=== PATIENT | female | born 2000 | race Caucasian/White ===

== ENCOUNTER 2021-01-04 02:49 | Emergency (ER) | payer OTHER ==
[2021-01-04] MEDS ORDERED: SODIUM CHLORIDE 0.9% 1,000 ML IV STA (03:50)
[2021-01-04] MEDS ORDERED: diphenhydrAMINE INJ 50 MG/ML VIAL IVP STA (03:50)
[2021-01-04] MEDS ORDERED: PROCHLORPERAZINE 10 MG/2 ML VIAL IVP STA (03:50)
[2021-01-04] MEDS ORDERED: KETOROLAC 30 MG/ML VIAL IVP STA (03:50)
[2021-01-04] MEDS ORDERED: DEXAMETHASONE 10 MG/ML VIAL IVP STA (03:50)
--- NOTE | 2021-01-04 03:55 | ED Physician Documentation ---
PD HPI HEADACHE - Stated complaint Stated Complaint: MIGRANE, BODY ACHE, NAUSEA - Chief complaint Chief Complaint: Neuro - History obtained from History obtained from: Patient - History of Present Illness Timing - onset: How many days ago (3) Timing - onset during: Rest Timing - duration: Days (3) Timing - details: Gradual onset, Still present Location: Front Quality: Throbbing, Aching Associated symptoms: Nausea, Vomiting. No: Fever, Stiff neck Improved by: Rest, Dark room Worsened by: Light, Noise, Moving Contributing factors: No: Anticoagulated Similar symptoms before: Diagnosis (migraine) Recently seen: Clinic (has started paroxitine 2 days ago.) - Additional information Additional information: 20-year-old female comes into the emergency department complaining of a headache that she has had daily's for the past year. She has been evaluated with MRI and she has taken sumatritan and rizatriptan without improvement. She complains of a headache that starts in the center of her head and moves backwards. She has some nausea with this and occasional vomiting. She has had significant frustration with continued headache and states that she is spending most of her time in bed because of this headache and pelvic pain. She believes she has endometriosis and relates heavy menstrual flow and incapacitating menstrual cycles. She has not been in to see [facility] about these symptoms. She has referral in place. She has recently started paroxetine 2 days ago and she feels that her nausea is much worse after starting the paroxetine. She wonders if she should stop it. . Review of Systems Constitutional: denies: Fever Eyes: reports: Photophobia. denies: Decreased vision Ears: denies: Ear pain Nose: denies: Congestion Throat: denies: Sore throat Cardiac: denies: Chest pain / pressure, Palpitations Respiratory: denies: Dyspnea, Cough GI: reports: Abdominal Pain, Nausea, Vomiting : denies: Dysuria, Frequency Skin: denies: Rash Musculoskeletal: denies: Neck pain, Back pain, Extremity pain Neurologic: denies: Generalized weakness, Focal weakness, Numbness Psychiatric: reports: Depressed PD PAST MEDICAL HISTORY - Past Medical History Past Medical History: Yes Neuro: Migraines Psych: Depression, Anxiety Other Past Medical History: Migraine - Past Surgical History Past Surgical History: No HEENT: Other - Present Medications Home Medications: Ambulatory Orders Medication Instructions Recorded Confirmed PARoxetine HCl [Paxil] 20 mg DAILY 01/04/21 01/04/21 Rizatriptan Benzoate [Rizatriptan] 10 mg PRN PRN 01/04/21 01/04/21 - Allergies Allergies/Adverse Reactions: Allergies Allergy/AdvReac Type Severity Reaction Status Date / Time amoxicillin Allergy Unknown Verified 01/04/21 03:00 clindamycin Allergy Hives Verified 01/04/21 03:00 Penicillins Allergy Unknown Verified 01/04/21 03:00 - Social History Does the pt smoke?: No Smoking Status: Never smoker Does the pt drink ETOH?: Yes Does the pt have substance abuse?: No - Immunizations Immunizations are current?: Yes PD ED PE NORMAL - Vitals Vital signs reviewed: Yes (Tachycardic and hypertensive mild) - General General: Alert and oriented X 3, Well developed/nourished, Other (Teary-eyed female expressing frustration) - HEENT HEENT: Atraumatic, PERRL, EOMI - Neck Neck: Supple, no meningeal sign, No bony TTP - Cardiac Cardiac: RRR, No murmur - Respiratory Respiratory: No respiratory distress, Clear bilaterally - Abdomen Abdomen: Normal bowel sounds, Soft, Non distended, No organomegaly, Other (Palpation of the right upper quadrant of the abdomen causes pain in the left lower quadrant) - Back Back: No CVA TTP, No spinal TTP - Derm Derm: Normal color, Warm and dry, No rash - Extremities Extremities: No deformity, No edema - Neuro Neuro: Alert and oriented X 3, No motor deficit, No sensory deficit, Normal speech Eye Opening: Spontaneous Motor: Obeys Commands Verbal: Oriented GCS Score: 15 - Psych Psych: Other (Mood is frustrated and the affect is labile) Results - Vitals Vitals: Vital Signs - 24 hr 01/04/21 01/04/21 01/04/21 03:00 03:06 04:43 Temperature 36.8 C 36.8 C Heart Rate 105 H 105 H 75 Respiratory 20 20 15 Rate Blood Pressure 126/81 H 126/81 H 114/78 O2 Saturation 95 95 100 01/04/21 05:18 Temperature 36.8 C Heart Rate 72 Respiratory 16 Rate Blood Pressure 115/72 O2 Saturation 100 Oxygen O2 Source Room air - Labs Labs: Laboratory Tests 01/04/21 01/04/21 01/04/21 03:56 04:00 04:00 WBC 4.9 RBC 4.46 Hgb 13.4 Hct 39.7 MCV 89.0 MCH 30.0 MCHC 33.8 RDW 12.5 Plt Count 241 MPV 8.8 Neut # (Auto) 3.2 Lymph # (Auto) 0.6 L Summers # (Auto) 1.0 Eos # (Auto) 0.0 Baso # (Auto) 0.0 Absolute Nucleated RBC 0.00 Nucleated RBC % 0.0 Sodium 136 Potassium 3.9 Chloride 103 Carbon Dioxide 23 Anion Gap 10.0 BUN 8 Creatinine 0.6 Estimated GFR (MDRD) 126 Glucose 102 H Calcium 9.3 Total Bilirubin 0.4 AST 16 ALT 12 Alkaline Phosphatase 39 L Total Protein 7.8 Albumin 4.6 Globulin 3.2 Albumin/Globulin Ratio 1.4 Lipase 34 Urine Color YELLOW Urine Clarity CLEAR Urine pH 5.5 Ur Specific [place] >=1.030 H Urine Protein NEGATIVE Urine Glucose (UA) NEGATIVE Urine Ketones >=80 H Urine Occult Blood NEGATIVE Urine Nitrite NEGATIVE Urine Bilirubin NEGATIVE Urine Urobilinogen 0.2 (NORMAL) Ur Leukocyte Esterase NEGATIVE Ur Microscopic Review NOT INDICATED Urine Culture Comments NOT INDICATED Urine HCG, Qual NEGATIVE Procedures - IVC sono (time) 0340 Bedside IVC sono: IVC measures (cm) (1.57), Euvolemia PD MEDICAL DECISION MAKING - ED course Complexity details: reviewed results, re-evaluated patient, considered differential, d/w patient ED course: 20-year-old female with daily migraine has worsening of her symptoms over the past 3 days she comes to the emergency department in the middle of the night frustrated with her care and with the chief complaint of uncontrolled migraine. Here in the emergency department we have administered a migraine cocktail consisting of dexamethasone, Compazine, Toradol, Benadryl and saline. The patient had good relief of her headache and appeared to feel quite a bit b apoorva the crying and frustration seemed improved. Departure - Departure Disposition: 01 Home, Self Care Clinical Impression: Migraine Qualifiers: Migraine type: without aura Status migrainosus presence: with status migrainosus Intractability: not intractable Qualified Code(s): G43.001 - Migraine without aura, not intractable, with status migrainosus Condition: Stable Instructions: ED Headache Migraine Follow-Up: [facility] [Provider Group] [facility] [Provider Group] Discharge Date/Time: 01/04/21 05:18
[2021-01-04 04:05] LABS: BASOPHILS % (AUTO) 0.4 %; EOSINOPHILS % (AUTO) 0.4 %; HCT - HEMATOCRIT 39.7 % (37.0-47.0); HGB - HEMOGLOBIN 13.4 g/dL (12.0-16.0); LYMPHOCYTES # (AUTO) 0.6 10^3/uL (1.5-3.5); LYMPHOCYTES % (AUTO) 12.9 %; MEAN CORPUSCULAR HGB CONC 33.8 g/dL (32.0-36.0); MEAN PLATELET VOLUME 8.8 fL (7.9-10.8); NEUTROPHILS # (AUTO) 3.2 10^3/uL (1.5-6.6); NEUTROPHILS % (AUTO) 66.1 %; PLT - PLATELET COUNT 241 10^3/uL (130-450); RED BLOOD COUNT 4.46 10^6/uL (4.20-5.40); RED CELL DISTRIBUTION WIDTH 12.5 % (12.0-15.0); WHITE BLOOD COUNT 4.9 x10^3/uL (4.8-10.8)
[2021-01-04 04:18] LABS: ALBUMIN 4.6 g/dL (3.2-5.5); ALBUMIN/GLOBULIN RATIO 1.4 (1.0-2.2); BILIRUBIN,TOTAL 0.4 mg/dL (0.2-1.0); CALCIUM 9.3 mg/dL (8.5-10.3); CREATININE 0.6 mg/dL (0.4-1.0); POTASSIUM 3.9 mmol/L (3.5-5.0); TOTAL PROTEIN 7.8 g/dL (6.7-8.2)
[2021-01-04 04:21] LABS: BILIRUBIN,URINE NEGATIVE (NEGATIVE); GLUCOSE, URINE (UA) NEGATIVE (NEGATIVE); KETONES,URINE (UA) >=80 mg/dL (NEGATIVE); LEUKOCYTE ESTERASE, URINE NEGATIVE (NEGATIVE); NITRITE,URINE NEGATIVE (NEGATIVE); OCCULT BLOOD,URINE NEGATIVE (NEGATIVE); PH,URINE 5.5 PH (5.0-7.5); PROTEIN,URINE NEGATIVE (NEGATIVE); UROBILINOGEN,URINE 0.2 (NORMAL) E.U./dL (NORMAL)
[2021-01-04 04:23] LABS: CLARITY,URINE CLEAR (CLEAR); HCG UR QUAL NEGATIVE
[2021-01-04 05:20] VITALS: BP 115/72
== END 2021-01-04 05:18 | disposition home or self-care (01) ==
LOC: ED 02:49
DX: G43.001 Migraine without aura, not intractable, with status migrainosus (principal)
CPT/HCPCS: 36415; 80053; 81003; 81025; 83690; 85025; 96361; 96374; 96375; 99283; 99284; J1200; 81001; 87086

== ENCOUNTER 2021-11-29 11:21 | Emergency (ER) | payer OTHER ==
[2021-11-29 11:44] LABS: BILIRUBIN,URINE NEGATIVE (NEGATIVE); GLUCOSE, URINE (UA) NEGATIVE (NEGATIVE); KETONES,URINE (UA) NEGATIVE (NEGATIVE); LEUKOCYTE ESTERASE, URINE TRACE (NEGATIVE); NITRITE,URINE NEGATIVE (NEGATIVE); OCCULT BLOOD,URINE MODERATE (NEGATIVE); PROTEIN,URINE NEGATIVE (NEGATIVE); UROBILINOGEN,URINE 0.2 (NORMAL) E.U./dL (NORMAL)
[2021-11-29 11:46] LABS: CLARITY,URINE HAZY (CLEAR); HCG UR QUAL POSITIVE
[2021-11-29 11:54] LABS: BACTERIA,URINE Moderate /HPF (None Seen); SQUAMOUS EPITHELIAL CELL,UR MOD Squamous (<= Few)
[2021-11-29 12:31] LABS: BASOPHILS # (AUTO) 0.1 10^3/uL (0.0-0.1); BASOPHILS % (AUTO) 0.7 %; EOSINOPHILS % (AUTO) 0.5 %; HCT - HEMATOCRIT 38.7 % (37.0-47.0); HGB - HEMOGLOBIN 13.3 g/dL (12.0-16.0); LYMPHOCYTES # (AUTO) 1.5 10^3/uL (1.5-3.5); LYMPHOCYTES % (AUTO) 17.7 %; MEAN CORPUSCULAR HEMOGLOBIN 30.3 pg (27.0-31.0); MEAN CORPUSCULAR HGB CONC 34.4 g/dL (32.0-36.0); MEAN CORPUSCULAR VOLUME 88.2 fL (81.0-99.0); MEAN PLATELET VOLUME 9.1 fL (7.9-10.8); MONOCYTES # (AUTO) 0.8 10^3/uL (0.0-1.0); MONOCYTES % (AUTO) 9.4 %; NEUTROPHILS # (AUTO) 6.1 10^3/uL (1.5-6.6); NEUTROPHILS % (AUTO) 71.5 %; PLT - PLATELET COUNT 306 10^3/uL (130-450); RED BLOOD COUNT 4.39 10^6/uL (4.20-5.40); RED CELL DISTRIBUTION WIDTH 12.3 % (12.0-15.0); WHITE BLOOD COUNT 8.5 x10^3/uL (4.8-10.8)
[2021-11-29 12:46] LABS: CALCIUM 9.8 mg/dL (8.5-10.3); CREATININE 0.4 mg/dL (0.4-1.0)
--- NOTE | 2021-11-29 14:23 | ED Physician Documentation ---
History of Present Illness - Stated complaint Stated Complaint: BLEEDING, - Chief complaint Chief Complaint: General - History obtained from History obtained from: Patient - Additonal information Additional information: 21-year-old G now 3 with a history of 2 miscarriages presents with heavy cramping that has mostly subsided with spotting starting late morning today. Review of Systems Constitutional: denies: Fever, Chills Cardiac: reports: Reviewed and negative Respiratory: reports: Reviewed and negative PD PAST MEDICAL HISTORY - Past Medical History Past Medical History: Yes Neuro: Migraines [employer]IT[employer] ASSOCIATE: Miscarriage(s) Psych: Depression, Anxiety - Past Surgical History Past Surgical History: No HEENT: Other - Present Medications Home Medications: Ambulatory Orders Medication Instructions Recorded Confirmed PARoxetine HCl [Paxil] 20 mg DAILY 01/04/21 01/04/21 Rizatriptan Benzoate [Rizatriptan] 10 mg PRN PRN 01/04/21 01/04/21 - Allergies Allergies/Adverse Reactions: Allergies Allergy/AdvReac Type Severity Reaction Status Date / Time amoxicillin Allergy Unknown Verified 01/04/21 03:00 clindamycin Allergy Hives Verified 01/04/21 03:00 Penicillins Allergy Unknown Verified 01/04/21 03:00 - Social History Does the pt smoke?: No Smoking Status: Never smoker Does the pt drink ETOH?: Yes Does the pt have substance abuse?: No - Immunizations Immunizations are current?: Yes PD ED PE NORMAL - Vitals Vital signs reviewed: Yes - General General: Alert and oriented X 3, No acute distress - Abdomen Abdomen: Soft, Non tender - Female Female : Deferred (Ultrasound already done) - Neuro Neuro: Alert and oriented X 3, Normal speech Results - Vitals Vitals: Vital Signs - 24 hr 11/29/21 11/29/21 11:26 14:32 Temperature 36.9 C Heart Rate 86 70 Respiratory 20 Rate Blood Pressure 120/77 122/53 L O2 Saturation 100 99 Oxygen O2 Source Room air - Labs Labs: Laboratory Tests 11/29/21 11/29/21 11/29/21 11:35 12:23 12:23 WBC 8.5 RBC 4.39 Hgb 13.3 Hct 38.7 MCV 88.2 MCH 30.3 MCHC 34.4 RDW 12.3 Plt Count 306 MPV 9.1 Neut # (Auto) 6.1 Lymph # (Auto) 1.5 Hooker # (Auto) 0.8 Eos # (Auto) 0.0 Baso # (Auto) 0.1 Absolute Nucleated RBC 0.00 Nucleated RBC % 0.0 Sodium Potassium Chloride Carbon Dioxide Anion Gap BUN Creatinine Estimated GFR (MDRD) Glucose Calcium HCG, Quant Urine Color YELLOW Urine Clarity HAZY Urine pH 6.0 Ur Specific [place] 1.025 Urine Protein NEGATIVE Urine Glucose (UA) NEGATIVE Urine Ketones NEGATIVE Urine Occult Blood MODERATE H Urine Nitrite NEGATIVE Urine Bilirubin NEGATIVE Urine Urobilinogen 0.2 (NORMAL) Ur Leukocyte Esterase TRACE H Urine RBC 6-10 H Urine WBC 4-5 Ur Squamous Epith Cells MOD Squamous H Urine Bacteria Moderate H Ur Microscopic Review INDICATED Urine Culture Comments NOT INDICATED Urine HCG, Qual POSITIVE Blood Type A POSITIVE 11/29/21 11/29/21 12:23 12:23 WBC RBC Hgb Hct MCV MCH MCHC RDW Plt Count MPV Neut # (Auto) Lymph # (Auto) Hooker # (Auto) Eos # (Auto) Baso # (Auto) Absolute Nucleated RBC Nucleated RBC % Sodium 136 Potassium 4.0 Chloride 102 Carbon Dioxide 26 Anion Gap 8.0 BUN 12 Creatinine 0.4 Estimated GFR (MDRD) 200 Glucose 79 Calcium 9.8 HCG, Quant 859812.00 Urine Color Urine Clarity Urine pH Ur Specific [place] Urine Protein Urine Glucose (UA) Urine Ketones Urine Occult Blood Urine Nitrite Urine Bilirubin Urine Urobilinogen Ur Leukocyte Esterase Urine RBC Urine WBC Ur Squamous Epith Cells Urine Bacteria Ur Microscopic Review Urine Culture Comments Urine HCG, Qual Blood Type PD MEDICAL DECISION MAKING - ED course ED course: 21-year-old presents fearful of her current with cramping and spotting. Reassuring work-up here with beta-hCG around 130,000 and single live intrauterine on ultrasound corresponding with dates. She does have a subchorionic hemorrhage. Counseled on follow-up and return precautions. Departure - Departure Disposition: 01 Home, Self Care Clinical Impression: Threatened affecting intrauterine Condition: Good Record reviewed to determine appropriate education?: Yes Instructions: ED Preg Established Normal Sxs Comments: Your blood type is a positive. The ultrasound looking reassuring today with a live intrauterine noted at the age of about 7 weeks. Follow-up with your OB, next available appointment. Return for new or worsening symptoms. Discharge Date/Time: 11/29/21 14:32
[2021-11-29 14:33] VITALS: BP 122/53
--- NOTE | 2021-11-29 15:02 | Ultrasound Report ---
PROCEDURE: OB First Trimester w/TV INDICATIONS: preg vb TECHNIQUE: Real-time scanning was performed of the fetus and maternal pelvic organs, with image documentation. Endovaginal scanning was also performed to better visualize the fetus and maternal ovaries. COMPARISON: None FINDINGS: Gestational sac in the uterine fundus containing a conceptus with a crown-rump length of 6-7 mm, lamar esponding to gestational age of six weeks four days. Yolk sac noted. heart rate measured at 132 bpm. Small subchorionic hemorrhage measuring 1.6 x 1.5 x 3.5 cm. Right corpus luteum cyst noted. Ova dhara otherwise normal. IMPRESSION: Single living intrauterine with estimated gestational age 6 weeks four days. Moderate-sized subchorionic hemorrhage. Reviewed by: Derek Hollingsworth MD on 11/29/2021 3:01 PM PDT Approved by: Derek Hollingsworth MD on 11/29/2021 3:01 PM PDT Station ID: [id number]
== END 2021-11-29 14:32 | disposition home or self-care (01) ==
LOC: ED 11:21
DX: O20.0 Threatened abortion (principal); Z3A.01 Less than 8 weeks gestation of pregnancy
CPT/HCPCS: 36415; 80048; 81001; 81003; 81025; 84702; 85025; 86900; 86901; 87086; 99282; 99284

== ENCOUNTER 2022-01-03 20:27 | Outpatient (CLI) | payer OTHER ==
--- NOTE | 2022-01-04 09:59 | Ultrasound Report ---
PROCEDURE: OB First Trimester INDICATIONS: SUPERV OF NL PREG OUTSIDE/PRIOR DATING DATA: Last menstrual period (LMP): Unknown. LMP-based estimated date of delivery (SHANTA): Unknown. First dating scan (date and location): 11/29/2021. Estimated date of delivery (SHANTA) from first dating scan: 07/17/2022. The below data below was generated using the ultrasound SHANTA of 07/17/2022. TECHNIQUE: Real-time scanning was performed of the fetus and maternal pelvic organs, with image documentation. COMPARISON: OB ultrasound 11/29/2021 FINDINGS: Embryo: 5.5 cm, 12 weeks 1 day Heart rate: 167 bpm. Small subchorionic hemorrhage measuring 1.6 x 1.1 x 0.7 cm, decreased. Measurement variability in dating: +/- 4 weeks by LMP, +/- 7 days by mean sac diameter (use before 6 weeks gestation if crown-rump length not able to be measured), +/- 5 days by crown-rump length (6-12 weeks gestation). Maternal organs: Ovaries are within normal limits. Right corpus luteum measuring 2.4 cm. IMPRESSION: 1. Cline living intrauterine at 12 weeks 1 day based on today's crown-rump length. Feta l heart rate 167 bpm. 2. Small perigestational hemorrhage is decreased. Reviewed by: Fernando Stewart MD on 01/04/2022 9:57 AM PDT Approved by: Fernando Stewart MD on 01/04/2022 9:57 AM PDT Station ID: [id number]
== END 2022-01-03 20:28 | disposition home or self-care (01) ==
LOC: DI 20:27
PROVIDERS: ATTEND Midwife
DX: O20.8 Other hemorrhage in early pregnancy (principal); Z3A.12 12 weeks gestation of pregnancy

== ENCOUNTER 2022-03-11 13:21 | Outpatient (CLI) | payer OTHER ==
--- NOTE | 2022-03-11 17:00 | Ultrasound Report ---
PROCEDURE: OB Detailed Eval INDICATIONS: SUPERVISION OF OUTSIDE/PRIOR DATING DATA: Last menstrual period (LMP): Unknown. LMP-based estimated date of delivery (SHANTA): Not applicable. First dating scan (date and location): 11/29/2021. Estimated date of delivery (SHANTA) from first dating scan: 07/17/2022. The below data below was generated using the first trimester ultrasound SHANTA of 07/17/2022 TECHNIQUE: Real-time scanning was performed of the fetus, with image documentation and biometric measurements. Endovaginal scanning: Not performed COMPARISON: 01/03/2022 FINDINGS: General: A single living intrauterine gestation is present. Presentation: Variable Placenta: Placental position is posterior, without previa. Amniotic fluid index: 13.7 cm, largest pocket is 4.5 cm, normal for gestational age. heart rate: 155 beats per minute. Maternal cervical canal: Closed and 3.6 cm long; normal length is 2.5 cm or more. biometrics: Biparietal diameter: 5.0 cm, 21 weeks, 1 day Head circumference: 18.7 cm, 21 weeks, 0 days Abdominal circumference: 16.5 cm, 21 weeks, 4 days Femur length: 3.5 cm, 21 weeks, 1 day Estimated gestational age from initial scan: 21 weeks, 5 days. Composite gestational age from present scan: 21 weeks, 2 days Estimated weight and percentile: 418 g, 27th percentile Measurement variability in biometric dating: +/- 10 days from 12-20 weeks gestation, +/- 2 weeks from 20-30 weeks gestation, +/- 3 weeks at 30 weeks gestation or later. Anatomic survey: Neuro: Ventricles are normal at less than 10 mm. Cisterna magna is normal at 3-11 mm. Cerebellum i s normal in size and morphology. Nuchal skin fold: Normal at less than 6 mm between 14 and 20 weeks gestational age. Face: Nose and lips, facial profile are normal. Spine: No evidence for spina bifida. Heart: 4-chambered heart is present, with normal ventricular outflow tracts. Diaphragm: Diaphragm is intact. Stomach: Left-sided stomach is present. Kidneys: No hydronephrosis. Normal is less than 5 mm in 2nd trimester, less than 7 mm in 3rd trimester. Cord: 3 vessel cord has orthotopic insertion. Bladder: Normal in size. Extremities: All 4 extremities are visualized. IMPRESSION: 1. Single living intrauterine with composite gestational age in good agreement with the ini tiamicky assigned gestational age. 2. Estimated weight at the 27th percentile. 3. Normal anatomy. 4. Normal amniotic fluid volume and closed cervix. Reviewed by: Lizz León MD on 03/11/2022 4:58 PM PDT Approved by: Lizz León MD on 03/11/2022 4:58 PM PDT Station ID: [id number]
== END 2022-03-11 13:22 | disposition home or self-care (01) ==
LOC: DI 13:21
PROVIDERS: ATTEND Midwife
DX: Z34.02 Encounter for supervision of normal first pregnancy, second trimester (principal)

== ENCOUNTER 2022-04-01 17:34 | Outpatient (CLI) | payer OTHER ==
--- NOTE | 2022-04-01 19:28 | HISTORY & PHYSICAL EXAMINATION ---
Admit History - Visit Reason Visit Reason: Other (Patient is a 21-year-old female 3 para 0-0-2-0 who presented to labor and delivery on April 01, 2022 reporting of falling down her stairs and landing on her hip and right arm at approximately 4:30 PM. She denies of any uterine contractions, vaginal discharge or bleeding.) - Care: positive: Other Complications This : positive: None, Other (Covid infection in early 2nd trimester.) Smoking Status: Never smoker - Mother's Labs Mother's Blood Type: positive: A Mother's RH: positive: Positive Rubella Status: positive: Immune - Other Maternal History Other Maternal History: Patient is a 21-year-old female 3 para 0-0-2-0 who presented to labor and delivery on April 01, 2022 reporting of falling down her stairs and landing on her hip and right arm at approximately 4:30 PM. She denies of any uterine contractions, vaginal discharge or bleeding. She reports of continued active movements. Her care is in [facility]. She recently had a anatomy ultrasound that demonstrated normal findings. Cell free DNA obtained earlier this shows a female fetus with normal chromosomes. Her care is otherwise noted for history of depression for which she had taken Paxil during the first trimester. This was later changed over to Zoloft which she has not yet started. During my discussion with the patient active movements were noted. Her uterus is otherwise soft and nontender. No visible contusions are noted on her abdomen. She appears comfortable without distress. heart tones demonstrates moderate varia bility and accelerations. Occasional variable decelerations are noted. However very active movements is audible during her observation. Meds/Allgy - Allergies Allergies/Adverse Reactions: Allergies Allergy/AdvReac Type Severity Reaction Status Date / Time amoxicillin Allergy Unknown Verified 01/04/21 03:00 clindamycin Allergy Hives Verified 01/04/21 03:00 Penicillins Allergy Unknown Verified 01/04/21 03:00 Physical - Abdominal Exam Vital Signs: Temp Pulse Resp BP Pulse Ox O2 Flow Rate 97.9 F 72 18 110/64 100 04/01/22 18:34 04/01/22 18:10 04/01/22 18:10 04/01/22 18:10 04/01/22 18:10 Contraction Intensity: positive: Other (No contractions reported by patient or on toco monitor.) Uterine Resting Tone: positive: Soft - Monitoring Strip Review: positive: Category I - Vaginal Exam Membranes: positive: Membranes intact Plan for Labor - Plan For Labor Plan for Labor: Patient will be monitored over the next hour. If stable without evidence of contractions or distress, will discharge patient to home. We reviewed labs, and kick count instructions.
[2022-04-01 20:17] VITALS: BP 109/65
== END 2022-04-01 20:06 | disposition home or self-care (01) ==
LOC: WFO 17:34 → FBP 17:38 → WFO 20:06
PROVIDERS: ATTEND Obstetrics & Gynecology
DX: O9A.219 Injury, poisoning and certain other consequences of external causes complicating pregnancy, unspecified trimester (principal); S79.919A Unspecified injury of unspecified hip, initial encounter; S49.91XA Unspecified injury of right shoulder and upper arm, initial encounter; Z3A.00 Weeks of gestation of pregnancy not specified; W10.9XXA Fall (on) (from) unspecified stairs and steps, initial encounter; Y92.009 Unspecified place in unspecified non-institutional (private) residence as the place of occurrence of the external cause; O99.340 Other mental disorders complicating pregnancy, unspecified trimester; F32.A Depression, unspecified
CPT/HCPCS: 59025; 99214

== ENCOUNTER 2023-07-04 13:30 | Outpatient (CLI) | payer OTHER ==
[2023-07-04 13:05] LABS: BILIRUBIN,URINE NEGATIVE (NEGATIVE); GLUCOSE, URINE (UA) NEGATIVE (NEGATIVE); KETONES,URINE (UA) NEGATIVE (NEGATIVE); LEUKOCYTE ESTERASE, URINE NEGATIVE (NEGATIVE); NITRITE,URINE NEGATIVE (NEGATIVE); OCCULT BLOOD,URINE NEGATIVE (NEGATIVE); PH,URINE 6.5 PH (5.0-7.5); PROTEIN,URINE NEGATIVE (NEGATIVE); UROBILINOGEN,URINE 0.2 (NORMAL) E.U./dL (NORMAL)
[2023-07-04 13:21] LABS: BACTERIA,URINE Few /HPF (None Seen); CLARITY,URINE CLEAR (CLEAR); RBC,URINE 0-5 /HPF (0-5); SQUAMOUS EPITHELIAL CELL,UR FEW Squamous (<= Few); WBC,URINE 0-3 /HPF (0-5)
[2023-07-04 17:48] LABS: BASOPHILS % (AUTO) 0.4 %; EOSINOPHILS % (AUTO) 0.3 %; HCT - HEMATOCRIT 39.9 % (37.0-47.0); HGB - HEMOGLOBIN 13.5 g/dL (12.0-16.0); LYMPHOCYTES # (AUTO) 2.1 10^3/uL (1.5-3.5); MEAN CORPUSCULAR HEMOGLOBIN 29.5 pg (27.0-31.0); MEAN CORPUSCULAR HGB CONC 33.8 g/dL (32.0-36.0); MEAN CORPUSCULAR VOLUME 87.1 fL (81.0-99.0); MEAN PLATELET VOLUME 9.5 fL (7.9-10.8); MONOCYTES # (AUTO) 0.5 10^3/uL (0.0-1.0); MONOCYTES % (AUTO) 5.1 %; NEUTROPHILS # (AUTO) 7.9 10^3/uL (1.5-6.6); NEUTROPHILS % (AUTO) 73.9 %; PLT - PLATELET COUNT 355 10^3/uL (130-450); RED BLOOD COUNT 4.58 10^6/uL (4.20-5.40); RED CELL DISTRIBUTION WIDTH 12.9 % (12.0-15.0); WHITE BLOOD COUNT 10.6 x10^3/uL (4.8-10.8)
[2023-07-05 04:10] LABS: HBsAG SCREEN Negative (Negative); RPR Non Reactive (Non Reactive)
[2023-07-05 12:09] LABS: VARICELLA-ZOSTER AB IGG 1392 index (Immune >165)
[2023-07-06 08:08] LABS: HCV AB Non Reactive (Non Reactive)
[2023-07-06 10:07] LABS: HIV SCREEN 4TH GENERATION Non Reactive (Non Reactive)
== END 2023-07-04 13:31 | disposition home or self-care (01) ==
LOC: LAB.WC 13:30
PROVIDERS: ATTEND Nurse Practitioner
DX: Z34.90 Encounter for supervision of normal pregnancy, unspecified, unspecified trimester (principal)
CPT/HCPCS: 36415; 81001; 85025; 86592; 86762; 86787; 86803; 86850; 86900; 86901; 87086; 87340; 87389

== ENCOUNTER 2023-07-11 12:43 | Outpatient (CLI) | payer OTHER ==
--- NOTE | 2023-07-11 16:01 | Ultrasound Report ---
PROCEDURE: OB 1st Trimester w/TV INDICATIONS: POSITIVE TEST OUTSIDE/PRIOR DATING DATA: Last menstrual period (LMP): 05/18/2023. LMP-based estimated date of delivery (SHANTA): 02/22/2024. First dating scan (date and location): 07/11/2023. Estimated date of delivery (SHANTA) from first dating scan: 02/25/2024. TECHNIQUE: Real-time scanning was performed of the fetus and maternal pelvic organs, with image documentation. Endovaginal scanning was also performed to better visualize the fetus and maternal ovaries. COMPARISON: None. FINDINGS: Intrauterine gestational sac present. Embryo: Blandon-rump length is 1.2 cm, compatible with an estimated gestational age of 7 weeks 2 days. Yolk sac is noted. Heart rate: 153 bpm. Other: Small perigestational sac hemorrhage is seen measuring 1.0 x 0.6 x 1.3 cm. Measurement variability in dating: +/- 4 weeks by LMP, +/- 7 days by mean sac diameter (use before 6 weeks gestation if crown-rump length not able to be measured), +/- 5 days by crown-rump length (6-12 weeks gestation). Maternal organs: Ovaries appear within normal limits. Probable left ovarian corpus luteum cyst. IMPRESSION: 1.Single live intrauterine with estimated gestational age of 7 weeks 2 days, corresponding to an ultrasound SHANTA of 02/25/2024. 2.Small perigestational sac hemorrhage measuring up to 1.3 cm. Reviewed by: Socrates Holley MD on 07/11/2023 4:00 PM PST Approved by: Socrates Holley MD on 07/11/2023 4:00 PM PST Station ID: [id number]
== END 2023-07-11 12:44 | disposition home or self-care (01) ==
LOC: DI 12:43
PROVIDERS: ATTEND Nurse Practitioner
DX: O20.8 Other hemorrhage in early pregnancy (principal); Z3A.01 Less than 8 weeks gestation of pregnancy

== ENCOUNTER 2023-07-31 08:00 | Outpatient (CLI) | payer OTHER ==
[2023-07-31 22:34] LABS: CHLAMYDIA TRACHOMATIS DNA NEGATIVE (NEGATIVE); NEISSERIA GONORRHOEAE DNA NEGATIVE (NEGATIVE); TRICHOMONAS VAGINALIS DNA NEGATIVE (NEGATIVE)
== END 2023-07-31 23:59 | disposition home or self-care (01) ==
LOC: LAB.WC 08:00
PROVIDERS: ATTEND Nurse Practitioner
DX: Z11.3 Encounter for screening for infections with a predominantly sexual mode of transmission (principal)
CPT/HCPCS: 87491; 87591; 87661

== ENCOUNTER 2023-08-18 08:00 | Outpatient (CLI) | payer OTHER ==
[2023-08-18 16:27] LABS: BILIRUBIN,URINE NEGATIVE (NEGATIVE); GLUCOSE, URINE (UA) NEGATIVE (NEGATIVE); KETONES,URINE (UA) NEGATIVE (NEGATIVE); LEUKOCYTE ESTERASE, URINE NEGATIVE (NEGATIVE); NITRITE,URINE NEGATIVE (NEGATIVE); OCCULT BLOOD,URINE NEGATIVE (NEGATIVE); PROTEIN,URINE NEGATIVE (NEGATIVE); UROBILINOGEN,URINE 0.2 (NORMAL) E.U./dL (NORMAL)
[2023-08-18 17:04] LABS: CLARITY,URINE TURBID (CLEAR)
[2023-08-18 17:05] LABS: AMORPHOUS SEDIMENT,UR Marked /LPF; BACTERIA,URINE Rare /HPF (None Seen); CRYSTALS,URINE 0-2 Uric Acid /LPF; RBC,URINE None Seen /HPF (0-5); SQUAMOUS EPITHELIAL CELL,UR RARE Squamous (<= Few); WBC,URINE 0-3 /HPF (0-5)
[2023-08-18 20:18] LABS: BACTERIAL VAGINOSIS DNA NEGATIVE (NEGATIVE); CANDIDA GLABRATA DNA NEGATIVE (NEGATIVE); CANDIDA GROUP DNA NEGATIVE (NEGATIVE); CANDIDA KRUSEI DNA NEGATIVE (NEGATIVE); TRICHOMONAS VAGINALIS DNA NEGATIVE (NEGATIVE)
== END 2023-08-18 23:59 | disposition home or self-care (01) ==
LOC: LAB.WC 08:00
PROVIDERS: ATTEND Nurse Practitioner
DX: N89.8 Other specified noninflammatory disorders of vagina (principal); R30.0 Dysuria
CPT/HCPCS: 81001; 81514; 87086